=== PATIENT | male | born 1960 | race Caucasian/White ===

== ENCOUNTER 2020-05-23 14:02 | Inpatient (IN) | payer OTHER ==
[~2020-05-23] VITALS: Ht 185.4 cm; Wt 177.2 kg
[2020-05-23] MEDS ORDERED: ATENOLOL 25 MG TAB PO ONE (15:00)
[2020-05-23] MEDS ORDERED: dilTIAZem 25 MG/5 ML VIAL IV ONE (15:00)
[2020-05-23 15:08] LABS: Basophils # (auto) 0 10 ^3/uL (0-0.2); Basophils % (auto) 0.4 % (0.0-2.0); Eosinophils # (auto) 0 10 ^3/uL (0-0.8); Lymphocytes # (auto) 0.5 10 ^3/uL (0.4-5.4)
[2020-05-23 15:10] LABS: Eosinophils % (auto) 0.2 % (0.0-7.0); Hematocrit 52.7 % (41.0-53.0); Hemoglobin 17.6 g/dL (13.5-17.5); Lymphocytes % (auto) 4.5 % (10.0-50.0); Mean Corpuscular Hemoglobin 27.7 pg (28.0-32.0); Mean Corpuscular Hgb Conc. 33.4 g/dL (32.0-36.0); Monocytes # (auto) 1.1 10 ^3/uL (0-1.3); Monocytes % (auto) 10.6 % (0.0-12.0); Neutrophils # (auto) 8.9 10 ^3/uL (1.6-8.6); Neutrophils % (auto) 84.3 % (37.0-80.0); Nucleated Red Blood Cells % 0.3 %; Platelet Count (auto) 254 10^3/uL (140-450); Red Blood Cells 6.34 10^6/uL (4.5-5.90); Red Cell Distribution Width 15.3 % (11.8-14.3); White Blood Cell 10.5 10^3/uL (4.4-10.8)
[2020-05-23 15:24] LABS: Alanine Aminotransferase 53 U/L (16-61); Albumin 2.5 g/dL (3.4-5.0); Anion Gap 15 (5-15); Aspartate Aminotransferase 52 U/L (15-37); BUN/Creatinine Ratio 17.7; Blood Urea Nitrogen 28 mg/dL (7-18); Calcium 8.3 mg/dL (8.5-10.1); Carbon Dioxide 22 mmol/L (21-32); Chloride 92 mmol/L (98-107); GFR African American 58 mL/min; GFR Non-African American 48 mL/min; Magnesium 2.6 mg/dL (1.6-2.6); Potassium 3.8 mmol/L (3.5-5.1); Sodium 129 mmol/L (136-145)
[2020-05-23 15:27] LABS: Lactic Acid w/Reflex 3.7 mmol/L (0.4-2.0)
[2020-05-23 15:48] LABS: Alkaline Phosphatase 94 U/L (45-117); Bilirubin, Total 0.8 mg/dL (0.2-1.0); Total Protein 7.7 g/dL (6.4-8.2)
[2020-05-23 16:07] LABS: Glucose 419 mg/dL (74-106)
[2020-05-23] MEDS ORDERED: ZOLPIDEM TARTRATE 5 MG TAB PO PRN (16:30)
[2020-05-23] MEDS ORDERED: ACETAMINOPHEN 500 MG TAB PO PRN (16:30)
[2020-05-23] MEDS ORDERED: ONDANSETRON HCL 4 MG/2 ML VIAL IV PRN (16:30)
[2020-05-23] MEDS ORDERED: MORPHINE SULFATE 4 MG/ML SYR/VIAL IV PRN (16:30)
[2020-05-23] MEDS ORDERED: METOPROLOL TARTRATE 1MG/1ML-5ML VIAL IV PRN (16:30)
[2020-05-23] MEDS ORDERED: DEXTROSE (50%) 50ML SYRG IV PRN (16:30)
[2020-05-23] MEDS ORDERED: NITROGLYCERIN 0.4 MG SL TAB SL PRN (16:30)
[2020-05-23 16:31] LABS: CRP High Sensitivity > 19 mg/dL (< 0.3)
[2020-05-23] MEDS ORDERED: SODIUM CHLORIDE 0.9% 1,000 ML IV ONE (17:30)
[2020-05-23] MEDS ORDERED: InsuLIN REG 1unit/0.01ml Soln (100units/ml) SC ONE (17:30)
[2020-05-23] MEDS: InsuLIN REG 1unit/0.01ml Soln (100units/ml) SC SCH ×2 (20:13→23:07)
[2020-05-23] MEDS: ACCU-CHEK COMFORT CURVE STRIP VI SCH (20:17)
[2020-05-23] MEDS: ALBUTEROL SULF HFA 90MCG INH 200DOSE IN SCH (21:31)
[2020-05-23] MEDS: DOXYCYCLINE 100 MG TAB/CAP PO SCH (22:00)
[2020-05-23] MEDS: ENOXAPARIN SOD 150 MG/1 ML SYRINGE SC SCH (22:00)
[2020-05-23 22:16] LABS: Urine Bacteria FEW /hpf (None Seen); Urine Blood 1+ /uL (Negative); Urine Specific Gravity 1.038 (1.001-1.035); Urine WBC 5 /hpf (0 - 3)
[2020-05-23] MEDS: METOPROLOL TARTRATE 25 MG TAB PO SCH (22:29)
[2020-05-23] MEDS: ATORVASTATIN 20 MG TAB PO SCH (22:29)
[2020-05-24 03:44] VITALS: BP 122/69
[2020-05-24] MEDS: ACCU-CHEK COMFORT CURVE STRIP VI SCH ×7 (04:30→23:22)
[2020-05-24] MEDS: InsuLIN REG 1unit/0.01ml Soln (100units/ml) SC SCH ×6 (04:30→23:21)
[2020-05-24] MEDS: ALBUTEROL SULF HFA 90MCG INH 200DOSE IN SCH (06:00)
[2020-05-24] MEDS ORDERED: DIGOXIN (250MCG/ML) 2 ML AMPULE IV ONE ×2 (08:00→10:00)
[2020-05-24] MEDS ORDERED: SODIUM CHLORIDE 0.9% 1,000 ML IV SCH (08:00)
[2020-05-24 08:30] LABS: Basophils # (auto) 0.1 10 ^3/uL (0-0.2); Basophils % (auto) 0.7 % (0.0-2.0); Eosinophils # (auto) 0 10 ^3/uL (0-0.8); Eosinophils % (auto) 0.1 % (0.0-7.0); Hematocrit 48.1 % (41.0-53.0); Hemoglobin 16.2 g/dL (13.5-17.5); Lymphocytes # (auto) 0.7 10 ^3/uL (0.4-5.4); Lymphocytes % (auto) 7.5 % (10.0-50.0); Mean Corpuscular Hemoglobin 27.3 pg (28.0-32.0); Mean Corpuscular Hgb Conc. 33.8 g/dL (32.0-36.0); Mean Corpuscular Volume 80.9 fL (80.0-100.0); Monocytes % (auto) 10.2 % (0.0-12.0); Neutrophils % (auto) 81.5 % (37.0-80.0); Nucleated Red Blood Cells % 0.3 %; Platelet Count (auto) 237 10^3/uL (140-450); Red Blood Cells 5.94 10^6/uL (4.5-5.90); Red Cell Distribution Width 14.5 % (11.8-14.3); White Blood Cell 9.8 10^3/uL (4.4-10.8)
[2020-05-24 08:39] LABS: Magnesium 2.6 mg/dL (1.6-2.6)
[2020-05-24 08:40] LABS: Albumin 2.2 g/dL (3.4-5.0); Calcium 8.1 mg/dL (8.5-10.1); Potassium 3.5 mmol/L (3.5-5.1)
[2020-05-24 08:42] LABS: Bilirubin, Total 0.5 mg/dL (0.2-1.0); Total Protein 6.7 g/dL (6.4-8.2)
[2020-05-24] MEDS ORDERED: CLOPIDOGREL BISULFATE 75 MG TAB PO SCH (10:00)
[2020-05-24] MEDS ORDERED: ASPirin 81 mg TAB PO SCH (10:00)
[2020-05-24] MEDS ORDERED: LISINOPRIL 5 MG TAB PO SCH (10:00)
[2020-05-24] MEDS ORDERED: ENOXAPARIN SOD 40 MG/0.4 ML SYRINGE SC SCH (10:00)
[2020-05-24] MEDS: dilTIAZem 120MG ER CAP PO SCH (10:10)
[2020-05-24] MEDS: ZINC SULFATE 220mg CAP or TAB PO SCH (10:10)
[2020-05-24] MEDS: DOXYCYCLINE 100 MG TAB/CAP PO SCH ×2 (10:11→21:39)
[2020-05-24] MEDS: METOPROLOL TARTRATE 25 MG TAB PO SCH ×2 (10:11→21:39)
[2020-05-24] MEDS: DOCUSATE SOD 100 MG CAP PO SCH (10:11)
[2020-05-24] MEDS: ASCORBIC ACID 1,000 MG TAB PO SCH (10:11)
[2020-05-24] MEDS: ENOXAPARIN SOD 150 MG/1 ML SYRINGE SC SCH ×2 (10:15→21:39)
[2020-05-24 11:03] LABS: Cholesterol 148 mg/dL (< 200); HDL Cholesterol 20 mg/dL (40-59); LDL Cholesterol 111 mg/dL (< 100); Triglycerides 175 mg/dL (< 150)
[2020-05-24] MEDS ORDERED: BUDESONIDE (INHALATION) 0.5 MG/2 ML NEB NEB ONE (15:15)
[2020-05-24] MEDS ORDERED: PANTOPRAZOLE 40 MG TAB PO ONE (15:15)
[2020-05-24] MEDS ORDERED: CHOLECALCIFEROL (VITD3) 2,000 UNIT CAP PO ONE (15:15)
[2020-05-24 18:22] VITALS: BP 125/55
--- NOTE | 2020-05-24 19:30 | NUR ---
OPENING NOTE Received report from day shift RN. Patient is A&O X's 4 with no s/s of distress and denies SOB or pain. Patient is currently receiving 3L O2 via N.[place] and saturation is 94%. 20G IV to right AC is intact and patent, flushed with NS.Educated patient on POC and to use call light when in need of any assistance and to call before getting up. Patient verbalized understanding. Bed is in lowest/locked position with side rails up X's 2 and call light is within reach of patient. Will continue care.
[2020-05-24 21:00] VITALS: BP 100/58
[2020-05-24] MEDS: ATORVASTATIN 20 MG TAB PO SCH (21:39)
[2020-05-24] MEDS ORDERED: BUDESONIDE (INHALATION) 0.5 MG/2 ML NEB NEB SCH (22:00)
[2020-05-24] MEDS: BUDESONIDE (INHALATION) 180 MCG IH IN SCH (22:23)
--- NOTE | 2020-05-25 04:00 | NUR ---
AMBULATION Patient ambulated to bathroom with minimal assistance. When patient got back into bed, assessed O2 to be 86-88% on room air after exertion. Place 3L NC back onto patient and O2 still around 88-90%. Increased to 5L NC. O2 staying above 94%. Respirations were even and unlabored. Patient reported minimal SOB but states "I feel way better walking today." Educated patient to continue to use call light when having to ambulate. Patient verbalized understanding. Will continue care.
[2020-05-25] MEDS: InsuLIN REG 1unit/0.01ml Soln (100units/ml) SC SCH ×5 (04:34→23:19)
[2020-05-25] MEDS: ACCU-CHEK COMFORT CURVE STRIP VI SCH ×5 (04:35→23:19)
[2020-05-25 05:00] VITALS: BP 101/67
[2020-05-25 07:30] LABS: Basophils # (auto) 0.1 10 ^3/uL (0-0.2); Basophils % (auto) 1.3 % (0.0-2.0); Eosinophils # (auto) 0.1 10 ^3/uL (0-0.8); Eosinophils % (auto) 0.8 % (0.0-7.0); Hematocrit 46.8 % (41.0-53.0); Lymphocytes # (auto) 1.1 10 ^3/uL (0.4-5.4); Lymphocytes % (auto) 13.1 % (10.0-50.0); Mean Corpuscular Hemoglobin 27.8 pg (28.0-32.0); Mean Corpuscular Hgb Conc. 34.3 g/dL (32.0-36.0); Mean Corpuscular Volume 81.2 fL (80.0-100.0); Monocytes % (auto) 11.3 % (0.0-12.0); Neutrophils # (auto) 6.4 10 ^3/uL (1.6-8.6); Neutrophils % (auto) 73.5 % (37.0-80.0); Platelet Count (auto) 247 10^3/uL (140-450); Red Blood Cells 5.76 10^6/uL (4.5-5.90); Red Cell Distribution Width 14.8 % (11.8-14.3); White Blood Cell 8.6 10^3/uL (4.4-10.8)
[2020-05-25] MEDS: BUDESONIDE (INHALATION) 180 MCG IH IN SCH ×2 (07:30→22:17)
--- NOTE | 2020-05-25 07:46 | NUR ---
Opening Shift Note Assumed care of patient, awake and alert. Patient currently on 3L NC No S/S of distress/SOB or pain. Instructed on POC and to call for assist PRN, will continue to monitor for changes Q1hr and PRN.
[2020-05-25 07:52] LABS: BUN/Creatinine Ratio 27.8; Calcium 7.9 mg/dL (8.5-10.1); Potassium 3.5 mmol/L (3.5-5.1)
[2020-05-25] MEDS: ZINC SULFATE 220mg CAP or TAB PO SCH (08:16)
[2020-05-25] MEDS: dilTIAZem 120MG ER CAP PO SCH (08:17)
[2020-05-25] MEDS: DOCUSATE SOD 100 MG CAP PO SCH (08:17)
[2020-05-25] MEDS: DOXYCYCLINE 100 MG TAB/CAP PO SCH ×2 (08:18→23:17)
[2020-05-25] MEDS: METOPROLOL TARTRATE 25 MG TAB PO SCH (08:18)
[2020-05-25] MEDS: PANTOPRAZOLE 40 MG TAB PO SCH (08:18)
[2020-05-25] MEDS: ASCORBIC ACID 1,000 MG TAB PO SCH (08:18)
[2020-05-25] MEDS: CHOLECALCIFEROL (VITD3) 2,000 UNIT CAP PO SCH (08:19)
[2020-05-25] MEDS: ENOXAPARIN SOD 150 MG/1 ML SYRINGE SC SCH ×2 (08:19→23:19)
[2020-05-25 09:00] VITALS: BP 132/78
[2020-05-25] MEDS ORDERED: AMIODARONE 450mg/250ml AE 250 ML IV SCH ×2 (09:30→15:30)
[2020-05-25] MEDS ORDERED: AMIODARONE HCL 150 MG in D5W 5% 100 ML IV ONE (09:30)
--- NOTE | 2020-05-25 10:56 | NUR ---
PAGED INFORMATION SYSTEMS ANALYST SAL RE: CLARIFICATION FOR AMIODARONE DRIP. AWAITING CALL BACK
--- NOTE | 2020-05-25 11:56 | NUR ---
RE-PAGED ANTONIO HUANG RE: CLARIFICATION FOR AMIODARONE DRIP. AWAITING CALL BACK
--- NOTE | 2020-05-25 12:00 | NUR ---
ANTONIO HUANG RETURNED PAGE PER TRANSFORMER INSPECTOR PRIMARY RN IS TO CONTINUE IV AMIODARONE. RN WILL BEGIN BOLUS
[2020-05-25 13:00] VITALS: BP 147/85
--- NOTE | 2020-05-25 13:18 | NUR ---
CONTACTED PHARMACY RE: [facility]. PER PRACTICING DERMATOLOGIST THEY WILL PREPARE MEDICATION AND SEND UP GARCÍA
[2020-05-25] MEDS ORDERED: DEXTROSE (50%) 50ML SYRG IV PRN (13:30)
--- NOTE | 2020-05-25 13:42 | NUR ---
CONTACTED PHARMACY RE: [facility]ONE. PER ENDO TECH THE MEDICATION IS NOT READY YET. THEY WILL PREPARE MEDICATION AND SEND UP GARCÍA
--- NOTE | 2020-05-25 14:52 | NUR ---
CONTACTED PHARMACY RE: AMIODARONE. PER INJECTION MOLDING SUPERVISOR THE MEDICATION IS NOT READY YET. THEY WILL PREPARE MEDICATION AND SEND UP GARCÍA
--- NOTE | 2020-05-25 15:36 | NUR ---
AMIODARONE ARRIVAL TO UNIT FROM PHARMACY. CONTACTED CARD SORTER VIRIDIANA PER CARD SORTER PATIENT IS GOING TO BE MOVED TO [place] AND SHE WILL BE WITH RN TO START AMIODARONE SOON PATIENT IS MOVED
--- NOTE | 2020-05-25 15:54 | NUR ---
IV insertion IV access obtained, via clean sterile technique by inserting 20 gauge catheter at RIGHT UPPER CHEST after 5 attempt(s). IV secured properly. No trauma to site. Patient tolerated well.
--- NOTE | 2020-05-25 15:55 | NUR ---
HAT BAND ATTACHER AWARE OF AMIODARONE BOLUS PER HAT BAND ATTACHER PATIENT WILL RECEIVE BOLOUS WHEN MOVED TO [facility]
[2020-05-25 17:00] VITALS: BP 157/85
--- NOTE | 2020-05-25 18:00 | NUR ---
AMIODARONE BOLUS SURGICAL CORSETIER AT BEDSIDE FOR BOLUS. INITIAL BP 118/70 HR 97 PATIENT ATTACHED TO BEDSIDE MONITOR WELL TELEMETRY. 1805 B 103/68 HR 68 1810 BP 113/58 HR 86 PATIENT TOLERATED BOLUS WELL
[2020-05-25] MEDS ORDERED: PNEUMOCOCCAL VACC POLYS 25 MCG/0.5 ML VIAL IM ONE (18:45)
[2020-05-25] MEDS ORDERED: INFLUENZA QUAD 2020-2021 0.5 ML SYRG IM ONE (18:45)
--- NOTE | 2020-05-25 19:45 | NUR ---
Opening Shift Note Assumed care of patient. Awake, alert and oriented x4. No S/S of distress/SOB or pain. Pt is on 4L nasal cannula with even and unlabored respirations. Instructed on POC and to call for assist PRN. Bed locked, in lowest position, call light within reach, side rails up x2. Will continue to monitor for changes Q1hr and PRN.
[2020-05-25 22:00] VITALS: BP 103/53
[2020-05-25] MEDS: ATORVASTATIN 20 MG TAB PO SCH (23:17)
[2020-05-25] MEDS: INSULIN LANTUS (GLARGINE) 1 /0.01ml (100units/ml) SC SCH (23:18)
[2020-05-26] MEDS ORDERED: AMIODARONE 450mg/250ml AE 250 ML IV SCH
[2020-05-26 05:47] VITALS: BP 110/60
[2020-05-26] MEDS: InsuLIN REG 1unit/0.01ml Soln (100units/ml) SC SCH ×4 (06:10→23:52)
[2020-05-26] MEDS: ACCU-CHEK COMFORT CURVE STRIP VI SCH ×4 (06:11→23:52)
[2020-05-26 06:48] LABS: Calcium 8.4 mg/dL (8.5-10.1); Magnesium 2.8 mg/dL (1.6-2.6); Potassium 3.3 mmol/L (3.5-5.1)
[2020-05-26] MEDS: BUDESONIDE (INHALATION) 180 MCG IH IN SCH ×2 (07:06→21:49)
--- NOTE | 2020-05-26 07:30 | NUR ---
Opening Shift Note Assumed patient care from NOC RN. Patient currently sitting up in bed, no signs of distress at this time. Respirations even and unlabored on 4L nasal cannula. AOx4. Will continue to monitor q1hr and PRN.
[2020-05-26 08:47] VITALS: BP 143/68
[2020-05-26] MEDS: ZINC SULFATE 220mg CAP or TAB PO SCH (09:43)
[2020-05-26] MEDS: dilTIAZem 120MG ER CAP PO SCH (09:43)
[2020-05-26] MEDS: DOCUSATE SOD 100 MG CAP PO SCH (09:43)
[2020-05-26] MEDS: ENOXAPARIN SOD 150 MG/1 ML SYRINGE SC SCH (09:44)
[2020-05-26] MEDS: PANTOPRAZOLE 40 MG TAB PO SCH (09:44)
[2020-05-26 12:25] VITALS: BP 141/68
[2020-05-26] MEDS: CHOLECALCIFEROL (VITD3) 2,000 UNIT CAP PO SCH (12:25)
[2020-05-26] MEDS: ASCORBIC ACID 1,000 MG TAB PO SCH (12:25)
[2020-05-26] MEDS: DOXYCYCLINE 100 MG TAB/CAP PO SCH ×2 (12:25→22:51)
--- NOTE | 2020-05-26 12:45 | NUR ---
at Bedside Dr. Gamez at bedside discussing plan of care with patient.
[2020-05-26] MEDS ORDERED: POTASSIUM CHL 20 Meq TABLET PO ONE (13:30)
--- NOTE | 2020-05-26 14:39 | NUR ---
Nutrition Assessment Notes Please refer to link for full assessment notes. Est Energy needs: 3231-6032 kcals (12-14 kcal/kgBW) Est Protein needs: 168-210 gms/day (2.0-2.5 gm/kgIBW of 84 kg) Will continue to monitor and reassess prn. Addendum: 05/26/20 at [address] Amended: Links added.
--- NOTE | 2020-05-26 15:36 | NUR ---
Paged Dr. Kidd regarding Amiodarone drip.
--- NOTE | 2020-05-26 15:57 | NUR ---
New Orders New orders received from Dr. Kidd regarding patient Amiodarone. See EMR. Per MD, discontinue IV Amiodarone 1hour after PO administration.
[2020-05-26] MEDS ORDERED: AMIODARONE HCL 200 MG TAB PO ONE (16:00)
[2020-05-26 17:00] VITALS: BP 126/69
--- NOTE | 2020-05-26 19:28 | NUR ---
Closing Shift Endorsed care to NOC Rosalba ARREOLA.
[2020-05-26 20:00] VITALS: BP 103/74
[2020-05-26] MEDS: AMIODARONE HCL 200 MG TAB PO SCH (22:49)
[2020-05-26] MEDS: APIXABAN 5 MG TAB PO SCH (22:50)
[2020-05-26] MEDS: ATORVASTATIN 20 MG TAB PO SCH (22:50)
[2020-05-26] MEDS: DIGOXIN 0.25 MG TAB PO SCH (22:50)
[2020-05-26] MEDS: INSULIN LANTUS (GLARGINE) 1 /0.01ml (100units/ml) SC SCH (23:51)
[2020-05-27 03:47] VITALS: BP 103/74
[2020-05-27 05:00] VITALS: BP 99/53
[2020-05-27 05:52] LABS: Basophils # (auto) 0.1 10 ^3/uL (0-0.2); Basophils % (auto) 1.2 % (0.0-2.0); Eosinophils # (auto) 0.2 10 ^3/uL (0-0.8); Eosinophils % (auto) 3.2 % (0.0-7.0); Hematocrit 42.9 % (41.0-53.0); Hemoglobin 14.4 g/dL (13.5-17.5); Lymphocytes # (auto) 1.4 10 ^3/uL (0.4-5.4); Lymphocytes % (auto) 23.4 % (10.0-50.0); Mean Corpuscular Hemoglobin 27.3 pg (28.0-32.0); Mean Corpuscular Hgb Conc. 33.5 g/dL (32.0-36.0); Mean Corpuscular Volume 81.4 fL (80.0-100.0); Monocytes # (auto) 0.7 10 ^3/uL (0-1.3); Monocytes % (auto) 12.9 % (0.0-12.0); Neutrophils # (auto) 3.4 10 ^3/uL (1.6-8.6); Neutrophils % (auto) 59.3 % (37.0-80.0); Nucleated Red Blood Cells % 0.6 %; Platelet Count (auto) 257 10^3/uL (140-450); Red Blood Cells 5.27 10^6/uL (4.5-5.90); Red Cell Distribution Width 14.4 % (11.8-14.3); White Blood Cell 5.8 10^3/uL (4.4-10.8)
[2020-05-27] MEDS: ACCU-CHEK COMFORT CURVE STRIP VI SCH ×3 (06:03→17:42)
[2020-05-27] MEDS: InsuLIN REG 1unit/0.01ml Soln (100units/ml) SC SCH ×3 (06:03→17:44)
[2020-05-27 06:12] LABS: Calcium 8.2 mg/dL (8.5-10.1); Potassium 3.7 mmol/L (3.5-5.1)
[2020-05-27 06:18] LABS: BUN/Creatinine Ratio 20.5; Bilirubin, Total 0.4 mg/dL (0.2-1.0); Total Protein 6.5 g/dL (6.4-8.2)
[2020-05-27] MEDS: BUDESONIDE (INHALATION) 180 MCG IH IN SCH ×2 (06:36→22:03)
[2020-05-27 08:59] VITALS: BP 107/71
[2020-05-27] MEDS: ZINC SULFATE 220mg CAP or TAB PO SCH (09:25)
[2020-05-27] MEDS: dilTIAZem 120MG ER CAP PO SCH (09:26)
[2020-05-27] MEDS: APIXABAN 5 MG TAB PO SCH ×2 (09:26→22:08)
[2020-05-27] MEDS: DOCUSATE SOD 100 MG CAP PO SCH (09:26)
[2020-05-27] MEDS: AMIODARONE HCL 200 MG TAB PO SCH ×2 (09:26→22:08)
[2020-05-27] MEDS: DOXYCYCLINE 100 MG TAB/CAP PO SCH ×2 (09:27→22:09)
[2020-05-27] MEDS: CHOLECALCIFEROL (VITD3) 2,000 UNIT CAP PO SCH (09:27)
[2020-05-27] MEDS: ASCORBIC ACID 1,000 MG TAB PO SCH (09:27)
[2020-05-27] MEDS: PANTOPRAZOLE 40 MG TAB PO SCH (09:27)
[2020-05-27] MEDS: DIGOXIN 0.25 MG TAB PO SCH (10:46)
[2020-05-27 14:35] VITALS: BP 125/52
[2020-05-27 17:00] VITALS: BP 130/66
--- NOTE | 2020-05-27 19:18 | NUR ---
CARE ENDORSED TO JENNIFER ARREOLA.
--- NOTE | 2020-05-27 19:25 | NUR ---
Opening note Assumed care of patient, patient is alert and orientated x4. No sob or distress noted. POC reviewed. ALL questions answered. Bed is locked in lowest position, side rails up x2. Will continue to monitor q1hr and PRN. Call light within reach.
[2020-05-27 22:06] VITALS: BP 125/65
[2020-05-27] MEDS: ATORVASTATIN 20 MG TAB PO SCH (22:09)
[2020-05-27] MEDS: INSULIN LANTUS (GLARGINE) 1 /0.01ml (100units/ml) SC SCH (22:50)
[2020-05-28] MEDS: InsuLIN REG 1unit/0.01ml Soln (100units/ml) SC SCH ×3 (00:27→11:49)
[2020-05-28] MEDS: ACCU-CHEK COMFORT CURVE STRIP VI SCH ×3 (00:29→11:48)
[2020-05-28 05:47] VITALS: BP 125/66
[2020-05-28] MEDS: BUDESONIDE (INHALATION) 180 MCG IH IN SCH (07:18)
--- NOTE | 2020-05-28 08:00 | NUR ---
Opening Shift Note Assumed patient care from NOC RN. Patient was sitting up in bed, feet dangling eating breakfast. Patient denies shortness of breath at this time. Per patient, he is able to independently walk to restroom and back to bed without shortness of breath. No signs of distress at this time. Respirations are even and unlabored on 2L nasal cannula. Patient currently out of bed in chair. Patient encouraged to continue with Incentive Spirometer use. Will continue to monitor q1hr and PRN.
[2020-05-28 08:52] VITALS: BP 124/67
[2020-05-28] MEDS: APIXABAN 5 MG TAB PO SCH (09:39)
[2020-05-28] MEDS: DOCUSATE SOD 100 MG CAP PO SCH (09:39)
[2020-05-28] MEDS: AMIODARONE HCL 200 MG TAB PO SCH (09:39)
[2020-05-28] MEDS: DOXYCYCLINE 100 MG TAB/CAP PO SCH (09:40)
[2020-05-28] MEDS: PANTOPRAZOLE 40 MG TAB PO SCH (09:40)
[2020-05-28] MEDS: ASCORBIC ACID 1,000 MG TAB PO SCH (09:40)
--- NOTE | 2020-05-28 09:40 | NUR ---
O2 Patient currently on 2L nasal cannula, SpO2 at 98%. Patient O2 decreased to 1L. 30 minute reassessment SpO2 95-97%. Patient denies shortness of breath, RR 18bpm at this time. Safety precautions in place, call light within reach. Will continue to monitor q1hr and PRN.
[2020-05-28] MEDS: dilTIAZem 120MG ER CAP PO SCH (09:41)
[2020-05-28] MEDS ORDERED: DIGOXIN 0.125 MG TAB PO SCH (10:00)
[2020-05-28] MEDS: CHOLECALCIFEROL (VITD3) 2,000 UNIT CAP PO SCH (10:38)
[2020-05-28] MEDS: ZINC SULFATE 220mg CAP or TAB PO SCH (10:38)
--- NOTE | 2020-05-28 11:30 | NUR ---
O2 Removed Patient nasal canula removed. SpO2 assessed at 97% on room air. Patient denies shortness of breath at this time. Safety precautions in place and call light is within reach. Will continue to monitor q1hr and PRN.
[2020-05-28 12:46] VITALS: BP 122/69
[2020-05-28 15:19] VITALS: BP 122/69
--- NOTE | 2020-05-28 16:25 | NUR ---
Discharge Info Patient provided with discharge instructions and information. Patient provided with information to Ann Olivares for assistance setting up primary care provider. Patient verbalized understanding.
--- NOTE | 2020-05-28 16:52 | NUR ---
Discharge Discharge instructions given as ordered. Encourage to follow up with PMD as instructed. All questions and concerns addressed. Patient verbalized understanding. Medication reconciliation form completed and copy given to patient. IV removed with catheter intact, pressure dressing applied. Telemetry unit returned to ICU. Patient taken to vehicle via wheelchair with all personal belongings, accompanied by staff and family member. No distress noted at time of departure, patient on room air with no signs of shortness of breath, SpO2 at time of departure 94%. Patient provided with discharge instructions and education including extension for marcie Salcedo for assistance with PCP. Patient verbalized understanding of teaching.
[2020-05-28 16:58] VITALS: BP 131/74
[2020-05-28] MEDS ORDERED: INSULIN LANTUS (GLARGINE) 1 /0.01ml (100units/ml) SC SCH (22:00)
== END 2020-05-28 16:52 | disposition home or self-care (01) | DRG 177 ==
LOC: EDBD 14:02 → ER 14:02 → TELE 14:03 → TELE-E-ADS 05-24 18:00 → TELE-CENTR 05-25 19:03
PROVIDERS: ADMIT Hospitalist; ATTEND Internal Medicine
DX: U07.1 COVID-19 (principal); J12.89 Other viral pneumonia; I21.4 Non-ST elevation (NSTEMI) myocardial infarction; J96.01 Acute respiratory failure with hypoxia; D68.69 Other thrombophilia; Z68.43 Body mass index [BMI] 50.0-59.9, adult; Z28.21 Immunization not carried out because of patient refusal; E11.22 Type 2 diabetes mellitus with diabetic chronic kidney disease; E11.65 Type 2 diabetes mellitus with hyperglycemia; E66.01 Morbid (severe) obesity due to excess calories; E78.5 Hyperlipidemia, unspecified; G47.30 Sleep apnea, unspecified; I12.9 Hypertensive chronic kidney disease with stage 1 through stage 4 chronic kidney disease, or unspecified chronic kidney disease; I48.91 Unspecified atrial fibrillation; N18.30 Chronic kidney disease, stage 3 unspecified; Z79.01 Long term (current) use of anticoagulants; Z79.51 Long term (current) use of inhaled steroids; Z79.84 Long term (current) use of oral hypoglycemic drugs; Z79.899 Other long term (current) drug therapy; Z82.49 Family history of ischemic heart disease and other diseases of the circulatory system; Z91.14 Patient's other noncompliance with medication regimen; Z91.19 Patient's noncompliance with other medical treatment and regimen
CPT/HCPCS: 36415; 71045; 71275; 80048; 80053; 80061; 81001; 82728; 82962; 83036; 83605; 83615; 83735; 83880; 84443; 84484; 85025; 85379; 86141; 87040; 87426; 93970; 94640; 96374; 99291; G0378; J1815; J7060

== ENCOUNTER 2021-01-04 10:47 | Inpatient (IN) | payer OTHER ==
[~2021-01-04] VITALS: Ht 185.4 cm; Wt 196.0 kg
[2021-01-04] MEDS ORDERED: cloNIDine HCL 0.1 MG TAB PO ONE (11:00)
[2021-01-04 11:27] LABS: Basophils # (auto) 0.1 10 ^3/uL (0-0.2); Basophils % (auto) 1.2 % (0.0-2.0); Eosinophils # (auto) 0.1 10 ^3/uL (0-0.8); Eosinophils % (auto) 1.4 % (0.0-7.0); Hematocrit 43.7 % (41.0-53.0); Hemoglobin 15.2 g/dL (13.5-17.5); Lymphocytes # (auto) 1.3 10 ^3/uL (0.4-5.4); Lymphocytes % (auto) 18.1 % (10.0-50.0); Mean Corpuscular Hemoglobin 28.4 pg (28.0-32.0); Mean Corpuscular Hgb Conc. 34.8 g/dL (32.0-36.0); Mean Corpuscular Volume 81.5 fL (80.0-100.0); Monocytes # (auto) 0.6 10 ^3/uL (0-1.3); Monocytes % (auto) 8.1 % (0.0-12.0); Neutrophils # (auto) 4.9 10 ^3/uL (1.6-8.6); Neutrophils % (auto) 71.2 % (37.0-80.0); Nucleated Red Blood Cells % 0.1 %; Platelet Count (auto) 218 10^3/uL (140-450); Red Blood Cells 5.36 10^6/uL (4.5-5.90); Red Cell Distribution Width 15.6 % (11.8-14.3); White Blood Cell 6.9 10^3/uL (4.4-10.8)
[2021-01-04] MEDS ORDERED: cloNIDine HCL 0.1 MG TAB ONE (11:31)
[2021-01-04 11:43] LABS: Albumin 3.8 g/dL (3.4-5.0); Anion Gap 9 (5-15); Blood Urea Nitrogen 13 mg/dL (7-18); Calcium 8.5 mg/dL (8.5-10.1); Carbon Dioxide 25 mmol/L (21-32); Chloride 105 mmol/L (98-107); Glucose 203 mg/dL (74-106); Potassium 3.8 mmol/L (3.5-5.1); Sodium 139 mmol/L (136-145)
[2021-01-04] MEDS ORDERED: FUROSEMIDE 40 MG/4 ML VIAL IV ONE (11:45)
[2021-01-04 11:51] LABS: Alanine Aminotransferase 17 U/L (16-61); Alkaline Phosphatase 100 U/L (45-117); Aspartate Aminotransferase 12 U/L (15-37); BUN/Creatinine Ratio 11.6; Bilirubin, Total 1.1 mg/dL (0.2-1.0); GFR African American 86 mL/min; GFR Non-African American 71 mL/min; Total Protein 7.8 g/dL (6.4-8.2)
[2021-01-04 13:40] LABS: Urine Bacteria NONE SEEN /hpf (None Seen); Urine Blood Negative /uL (Negative); Urine WBC 1 /hpf (0 - 3)
[2021-01-04] MEDS ORDERED: MORPHINE SULF INJ 2 MG/ML SYRINGE 1ML IV PRN ×2 (14:45)
[2021-01-04] MEDS ORDERED: NITROGLYCERIN 0.4 MG SL TAB SL PRN (14:45)
[2021-01-04] MEDS ORDERED: ONDANSETRON HCL 4 MG/2 ML VIAL IV PRN (14:45)
[2021-01-04] MEDS ORDERED: ACETAMINOPHEN 500 MG TAB PO PRN (14:45)
[2021-01-04] MEDS ORDERED: HYDROcodone-ACET 5/325MG TAB PO PRN (14:45)
[2021-01-04] MEDS: cefTRIAXone 1GM/50ML D5W 50 ML IV SCH (15:47)
[2021-01-04] MEDS: hydrALAZINE HCL 20 MG/ML VL IV PRN (16:08)
[2021-01-04 17:00] VITALS: BP 150/79
[2021-01-04] MEDS ORDERED: InsuLIN REG 1unit/0.01ml Soln (100units/ml) SC ONE (17:00)
[2021-01-04] MEDS ORDERED: ACCU-CHEK COMFORT CURVE STRIP VI ONE (17:00)
[2021-01-04 17:32] VITALS: BP 150/79
[2021-01-04] MEDS ORDERED: DEXTROSE (50%) 50ML SYRG IV PRN (21:15)
[2021-01-04 22:00] VITALS: BP 145/73
[2021-01-04] MEDS: CLINDAMYCIN 300MG IV 50 ML IV SCH (22:17)
[2021-01-04] MEDS: APIXABAN 5 MG TAB PO SCH (22:18)
[2021-01-04] MEDS: ATORVASTATIN 20 MG TAB PO SCH (22:18)
[2021-01-04] MEDS: DOCUSATE SOD 100 MG CAP PO SCH (22:18)
[2021-01-04] MEDS: ACCU-CHEK COMFORT CURVE STRIP VI SCH (22:19)
[2021-01-04] MEDS: METOPROLOL TARTRATE 25 MG TAB PO SCH (22:19)
[2021-01-04] MEDS: InsuLIN REG 1unit/0.01ml Soln (100units/ml) SC SCH (22:21)
[2021-01-05] MEDS: CLINDAMYCIN 300MG IV 50 ML IV SCH ×2 (05:45→13:21)
[2021-01-05] MEDS: ACCU-CHEK COMFORT CURVE STRIP VI SCH ×4 (06:40→21:43)
[2021-01-05] MEDS: InsuLIN REG 1unit/0.01ml Soln (100units/ml) SC SCH ×4 (06:42→21:55)
[2021-01-05 07:00] LABS: Basophils # (auto) 0.1 10 ^3/uL (0-0.2); Basophils % (auto) 0.9 % (0.0-2.0); Eosinophils # (auto) 0.2 10 ^3/uL (0-0.8); Eosinophils % (auto) 2.1 % (0.0-7.0); Hematocrit 38.7 % (41.0-53.0); Hemoglobin 13.4 g/dL (13.5-17.5); Lymphocytes # (auto) 1.3 10 ^3/uL (0.4-5.4); Lymphocytes % (auto) 17.8 % (10.0-50.0); Mean Corpuscular Hemoglobin 28.4 pg (28.0-32.0); Mean Corpuscular Hgb Conc. 34.7 g/dL (32.0-36.0); Mean Corpuscular Volume 81.8 fL (80.0-100.0); Monocytes # (auto) 0.7 10 ^3/uL (0-1.3); Neutrophils # (auto) 5.2 10 ^3/uL (1.6-8.6); Neutrophils % (auto) 69.2 % (37.0-80.0); Nucleated Red Blood Cells % 0.1 %; Platelet Count (auto) 208 10^3/uL (140-450); Red Blood Cells 4.73 10^6/uL (4.5-5.90); Red Cell Distribution Width 15.7 % (11.8-14.3); White Blood Cell 7.4 10^3/uL (4.4-10.8)
[2021-01-05 07:17] LABS: INR 1.24 (0.9-1.15); Partial Thromboplastin Time 29.9 sec (23.0-31.2)
[2021-01-05 07:56] LABS: Potassium 3.6 mmol/L (3.5-5.1)
[2021-01-05 08:06] LABS: BUN/Creatinine Ratio 11.6; Calcium 7.8 mg/dL (8.5-10.1)
[2021-01-05 08:30] VITALS: BP 134/89
[2021-01-05] MEDS: DOCUSATE SOD 100 MG CAP PO SCH ×2 (09:57→21:55)
[2021-01-05] MEDS: LISINOPRIL 10 MG TAB PO SCH (09:58)
[2021-01-05] MEDS: APIXABAN 5 MG TAB PO SCH ×2 (09:59→21:55)
[2021-01-05] MEDS: cefTRIAXone 1GM/50ML D5W 50 ML IV SCH (09:59)
[2021-01-05] MEDS: METOPROLOL TARTRATE 25 MG TAB PO SCH ×2 (09:59→22:02)
[2021-01-05] MEDS ORDERED: FUROSEMIDE 20 MG/2 ML VIAL IV SCH (10:00)
[2021-01-05] MEDS ORDERED: FAMOTIDINE 20 MG TAB PO SCH (10:00)
[2021-01-05 12:30] VITALS: BP 133/74
[2021-01-05 17:00] VITALS: BP 136/89
[2021-01-05 17:36] LABS: Alcohol, Urine < 3.0 mg/dL (0-10); Amphetamine Screen, Urine NEGATIVE (NEGATIVE); Barbiturate Scree,Urine NEGATIVE (NEGATIVE); Benzodiazephine Screen, Urine NEGATIVE (NEGATIVE); Cannabinoid Screen, Urine NEGATIVE (NEGATIVE); Cocaine Screen, Urine NEGATIVE (NEGATIVE); Opiate Scree,Urine NEGATIVE (NEGATIVE); Phencyclidine Screen, Urine NEGATIVE (NEGATIVE)
[2021-01-05] MEDS: INSULIN LANTUS (GLARGINE) 1 /0.01ml (100units/ml) SC SCH (21:54)
[2021-01-05] MEDS: ATORVASTATIN 20 MG TAB PO SCH (21:55)
[2021-01-05 22:00] VITALS: BP 159/78
[2021-01-06 05:00] VITALS: BP 154/85
[2021-01-06 06:13] LABS: Basophils # (auto) 0.1 10 ^3/uL (0-0.2); Basophils % (auto) 0.7 % (0.0-2.0); Eosinophils # (auto) 0.2 10 ^3/uL (0-0.8); Eosinophils % (auto) 2.3 % (0.0-7.0); Hematocrit 39.6 % (41.0-53.0); Hemoglobin 13.6 g/dL (13.5-17.5); Lymphocytes # (auto) 1.6 10 ^3/uL (0.4-5.4); Lymphocytes % (auto) 21.7 % (10.0-50.0); Mean Corpuscular Hemoglobin 28.4 pg (28.0-32.0); Mean Corpuscular Hgb Conc. 34.3 g/dL (32.0-36.0); Mean Corpuscular Volume 82.8 fL (80.0-100.0); Monocytes # (auto) 0.8 10 ^3/uL (0-1.3); Monocytes % (auto) 10.6 % (0.0-12.0); Neutrophils # (auto) 4.8 10 ^3/uL (1.6-8.6); Neutrophils % (auto) 64.7 % (37.0-80.0); Nucleated Red Blood Cells % 0.2 %; Platelet Count (auto) 213 10^3/uL (140-450); Red Blood Cells 4.78 10^6/uL (4.5-5.90); Red Cell Distribution Width 15.8 % (11.8-14.3); White Blood Cell 7.4 10^3/uL (4.4-10.8)
[2021-01-06] MEDS: ACCU-CHEK COMFORT CURVE STRIP VI SCH ×4 (06:23→22:27)
[2021-01-06] MEDS: InsuLIN REG 1unit/0.01ml Soln (100units/ml) SC SCH ×4 (06:25→22:29)
[2021-01-06 06:33] LABS: Albumin 3.2 g/dL (3.4-5.0); Calcium 8.6 mg/dL (8.5-10.1); Potassium 3.7 mmol/L (3.5-5.1)
[2021-01-06 06:48] LABS: BUN/Creatinine Ratio 12.8; Bilirubin, Total 0.8 mg/dL (0.2-1.0); Total Protein 6.7 g/dL (6.4-8.2)
[2021-01-06 09:00] VITALS: BP 145/88
[2021-01-06] MEDS: APIXABAN 5 MG TAB PO SCH ×2 (10:05→21:42)
[2021-01-06] MEDS: LISINOPRIL 10 MG TAB PO SCH (10:05)
[2021-01-06] MEDS: DOCUSATE SOD 100 MG CAP PO SCH ×2 (10:05→21:38)
[2021-01-06] MEDS: METOPROLOL TARTRATE 25 MG TAB PO SCH ×2 (10:06→21:39)
[2021-01-06] MEDS: POTASSIUM CHL 10 Meq TABLET PO SCH (10:06)
[2021-01-06] MEDS: FUROSEMIDE 40 MG/4 ML VIAL IV SCH (10:06)
[2021-01-06 13:00] VITALS: BP 153/84
[2021-01-06] MEDS: hydrALAZINE HCL 20 MG/ML VL IV PRN (16:41)
[2021-01-06 17:00] VITALS: BP 167/92
[2021-01-06 18:40] VITALS: BP 159/77
[2021-01-06] MEDS: ATORVASTATIN 20 MG TAB PO SCH (21:39)
[2021-01-06 22:00] VITALS: BP 166/83
[2021-01-06] MEDS: INSULIN LANTUS (GLARGINE) 1 /0.01ml (100units/ml) SC SCH (22:28)
[2021-01-07 05:03] VITALS: BP 158/73
[2021-01-07] MEDS: ACCU-CHEK COMFORT CURVE STRIP VI SCH ×2 (06:53→11:09)
[2021-01-07] MEDS: InsuLIN REG 1unit/0.01ml Soln (100units/ml) SC SCH ×2 (06:54→11:19)
[2021-01-07 07:29] LABS: Potassium 3.4 mmol/L (3.5-5.1)
[2021-01-07 07:48] LABS: BUN/Creatinine Ratio 13.5; Calcium 8.7 mg/dL (8.5-10.1)
[2021-01-07 08:00] VITALS: BP 150/82
[2021-01-07 09:00] VITALS: BP 165/92
[2021-01-07] MEDS: METOPROLOL TARTRATE 25 MG TAB PO SCH (09:08)
[2021-01-07] MEDS: APIXABAN 5 MG TAB PO SCH (09:08)
[2021-01-07] MEDS: FUROSEMIDE 40 MG/4 ML VIAL IV SCH (09:08)
[2021-01-07] MEDS: POTASSIUM CHL 10 Meq TABLET PO SCH (09:08)
[2021-01-07] MEDS: DOCUSATE SOD 100 MG CAP PO SCH (09:08)
[2021-01-07] MEDS: LISINOPRIL 10 MG TAB PO SCH (09:09)
[2021-01-07] MEDS ORDERED: POTASSIUM CHL 20 Meq TABLET PO ONE (11:15)
[2021-01-07] MEDS ORDERED: INSLANTI SC (11:16)
[2021-01-07] MEDS ORDERED: MET25T PO (11:16)
[2021-01-07] MEDS ORDERED: METF-372 PO (11:16)
[2021-01-07] MEDS ORDERED: LISI20TA28 PO (11:16)
[2021-01-07] MEDS ORDERED: FURO1TAB33 PO (11:16)
[2021-01-07] MEDS ORDERED: APIX5TAB PO (11:16)
[2021-01-07] MEDS ORDERED: POTA-220 PO (11:16)
[2021-01-07 13:04] VITALS: BP 158/99
[2021-01-07 13:08] VITALS: BP 158/99
[2021-01-08] MEDS ORDERED: LISINOPRIL 10 MG TAB PO SCH (10:00)
== END 2021-01-07 15:15 | disposition home or self-care (01) | DRG 291 ==
LOC: ER 10:47 → TELE 14:39 → TELE-EAST 17:12
PROVIDERS: ADMIT Nurse Practitioner Acute Care; ATTEND Internal Medicine
DX: I11.0 Hypertensive heart disease with heart failure (principal); J96.00 Acute respiratory failure, unspecified whether with hypoxia or hypercapnia; L03.115 Cellulitis of right lower limb; L03.116 Cellulitis of left lower limb; Z68.43 Body mass index [BMI] 50.0-59.9, adult; E11.65 Type 2 diabetes mellitus with hyperglycemia; I50.43 Acute on chronic combined systolic (congestive) and diastolic (congestive) heart failure; E66.01 Morbid (severe) obesity due to excess calories; E78.5 Hyperlipidemia, unspecified; I08.1 Rheumatic disorders of both mitral and tricuspid valves; I16.0 Hypertensive urgency; Z20.822 Contact with and (suspected) exposure to COVID-19; I48.0 Paroxysmal atrial fibrillation; Z79.84 Long term (current) use of oral hypoglycemic drugs; Z82.49 Family history of ischemic heart disease and other diseases of the circulatory system; Z83.3 Family history of diabetes mellitus; Z87.01 Personal history of pneumonia (recurrent); Z91.19 Patient's noncompliance with other medical treatment and regimen
CPT/HCPCS: 36415; 71045; 80048; 80053; 80061; 80307; 81001; 82947; 82962; 83036; 83735; 83880; 84443; 84484; 85025; 85049; 85379; 85610; 85730; 86141; 87426; 93005; 93306; 93970; 96365; 96375; 97163; G0378; J0696; J1815; J3490